=== PATIENT | female | born 1990 | race Caucasian/White ===

== ENCOUNTER 2017-02-03 12:35 | Emergency (ER) | payer BC, OTHER ==
[2017-02-03 13:19] VITALS: TEMP 98.2
--- NOTE | 2017-02-03 13:50 | UCPHY ---
H & P Time Seen by Provider: 02/03/17 13:21 Patient Type: Established HPI/ROS: CHIEF COMPLAINT: injury to the right middle finger HISTORY OF PRESENT ILLNESS: 26-year-old female. Caught right middle finger in the door at work. Just prior to admission. Complains of moderately intense pain. Denies any numbness or tingling. No other concomitant injury. Injury to the tip of the middle finger. Moderate bleeding, now stopped Constitutional - no fevers or chills Musculoskeletal - no joint or muscle pain. Integument - no rashes Neurological - no numbness, tingling, or paresthesias. Smoking Status: Light smoker Physical Exam: General Appearance: Alert, no distress. Afebrile. Extremities: There is a transverse laceration, 2 cm, to the midportion of the palmar surface of the distal phalanx of the 3rd digit of the right hand. She is right-handed. No tenderness weakness. No neurovascular damage. Neurological: NV intact. Skin: Skin is intact. Warm and dry, no rashes. no lymphangitis. . Constitutional: Initial Vital Signs Temperature (C) 36.8 C 02/03/17 12:50 Heart Rate 82 02/03/17 12:50 Respiratory Rate 18 02/03/17 12:50 Blood Pressure 138/99 H 02/03/17 12:50 O2 Sat (%) 96 02/03/17 12:50 O2 Delivery Mode Room Air Allergies/Adverse Reactions: No Known Allergies Allergy (Verified 02/03/17 14:43) Home Medications: Medication Instructions Recorded Hydrocodone/APAP 5/325 [[place] 1 tab PO Q4 #15 tab 02/03/17 5/325 (*)] NK [No Known Home Meds] 02/03/17 Medical Decision Making Procedures: Procedure: Laceration repair. Laceration Repair: Options presented to patient, consented to repair. After skin prep with chloraseptic the digit block anesthetized with digital block with lidocaine 1 % and 0.5 % Marcaine without epinephrine the wound was Cleansed with irrigation by Tech The length of the wound was 2 cm. Inspection and exploration of the wound, with gloved finger and forceps ,prior to closure revealed no evidence of foreign body and no involvement of deeper structures. Closure was obtained using running 5-0 nylon. At the end of the procedure, wound edges were well approximated and hemostasis was achieved. Patient tolerated procedure well. ED Course/Re-evaluation: [place] Prescription Drug Monitoring Program checked: no activity in last year Differential Diagnosis: Diagnostic considerations include, but are not limited to, the following: Laceration, retained FB, tendon injury, fracture. Departure - Departure Disposition: Home, Routine, Self-Care Clinical Impression: Finger laceration Qualifiers: Encounter type: initial encounter Qualified Code(s): S61.219A - Laceration without foreign body of unspecified finger without damage to nail, initial encounter Condition: Good Instructions: Finger Laceration (ED) Additional Instructions: Elevate, wear the splint for the next 3 weeks Follow up with worker's Comp in the next 5-7 days Take the [place] for the pain especially at night. During the daytime a combination of Tylenol and ibuprofen should work well: Tylenol 650 mg with IV fill 40 mg q.6h as needed. Referrals: NONE *PRIMARY CARE P,. [Primary Care Provider] - As per Instructions Prescriptions: Hydrocodone/APAP 5/325 [[place] 5/325 (*)] 1 tab PO Q4 #15 tab - PQRS PQRS Measurement: NA
[2017-02-03 15:14] VITALS: BP 136/89; PULSE 71; RESP 16; O2SAT 97
== END 2017-02-03 15:00 | disposition home or self-care (01) ==
LOC: CED 12:35
PROC: 0HQFXZZ Repair Right Hand Skin, External Approach (ICD-10-PCS; principal; 2017-02-03)
DX: S69.91XA Unspecified injury of right wrist, hand and finger(s), initial encounter (principal); Z72.0 Tobacco use; W23.0XXA Caught, crushed, jammed, or pinched between moving objects, initial encounter
CPT/HCPCS: 12001-PO; 73140-PO; 99214-PO; G0463-PO